=== PATIENT | female | born 1975 ===

== ENCOUNTER 2018-11-18 12:41 | Outpatient (RCR) | payer SELFPAY | END 2018-12-10 | disposition home or self-care (01) | LOC: WCC 12:41 | DX: M25.531 Pain in right wrist (principal); Z79.82 Long term (current) use of aspirin; E03.9 Hypothyroidism, unspecified; Z87.891 Personal history of nicotine dependence; Z91.011 Allergy to milk products | CPT/HCPCS: G0277 ×4 ==